=== PATIENT | female | born 1965 | race Caucasian/White ===

== ENCOUNTER → 2019-12-17 08:47 | Outpatient (POV) | payer OTHER, SELFPAY ==
[2019-12-17 09:03] VITALS: BP 154/82; PULSE 91; RESP 18; TEMP 36.3; O2SAT 100; BMI 27.4
--- NOTE | 2019-12-17 09:54 | HMH.PMCON ---
Assessment and Plan (1) Degenerative joint disease (DJD) of lumbar spine Current visit: Yes Status: Chronic Category: Medical Code(s): M47.816 - Spondylosis without myelopathy or radiculopathy, lumbar region (2) Radiculopathy Current visit: Yes Status: Chronic Qualifiers: Spinal region: lumbar Qualified Code(s): M54.16 - Radiculopathy, lumbar region Category: Medical Code(s): M54.10 - Radiculopathy, site unspecified - Assessment and plan all Dx Assessment and Plan for all problems:: We will schedule an L4-L5 lumbar epidural steroid injection for the patient. Given the symptomology I do believe it would benefit her. I will follow-up with her after this reassess her symptoms at that time she has been instructed to call the office if she has any issues prior to her next appointment. Patient is seeing cardiology on Saturday. I discussed with her that if she is put on any blood thinner she needs to contact our office. Dr. Jones has reviewed this note and agrees with this plan of care. This note was dictated using voice recognition software and may contain errors or omissions HPI - Data of Consult Consult date: 12/17/19 Requesting Physician: Nya Chan APRN Primary Care Provider: Referral Provider, MD - Consult Narrative Reason for consult: Back pain, leg pain History of present illness: Ms. Khan is a 54 year old female who presents today for consultation in regards to her low back and leg pain. She rates her pain a 5 out of 10. Patient has numbness and tingling into her hips and bilateral legs. 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 She is tried chiropractic therapy with no relief. Patient starts physical therapy tomorrow. Patient does have imaging showing degenerative disc disease lumbar spine. Patient is on anti-inflammatories and has had no relief. CC: Nya Chan APRN [facility] History I have reviewed the patient's past medical history: Yes Medical History: Reports:: Hypertension *Have you ever received a pneumonia vaccine?: No *Have you received a flu vaccine this season?: Yes Laterality Cases: Bilateral: Other Other Surgeries: Yes: Hysterectomy-Partial Amputation: No Fractures: No - *Social History Smoking Status: Current every day smoker Tobacco Type: cigarettes # Packs/Day (cigarettes): 1 Alcohol Intake: current Alcohol Intake Frequency:: holidays/special occasions only Substance Use Type: denies use *Occupational Status:: employed *Travel in the last 8 weeks: None Family Hx:: Non-contributory Review of Systems - Review of Systems Physical Exam General: Alert and oriented x3, no acute distress, pleasant and cooperative, [on room air] Lungs: Resps E/U, Symmetrical chest expansion, Eyes: PERRL Musculoskeletal: Flexion and extension of lumbar spine somewhat guarded secondary to pain, deep tendon reflexes normal, strength in upper and lower extremities [5/5], [abnormal gait noted] Neurological: speech clear, information security architect equal, no gross sensory deficits Meds Home Medications Medication Instructions Recorded Confirmed Type aspirin 81 mg tablet,delayed 81 mg PO QDAY #30 tab 05/02/17 Rx release levothyroxine 50 mcg capsule 50 mcg PO DAILY cap 06/20/17 History losartan 100 1 tab PO DAILY #30 tab 01/09/18 Rx mg-hydrochlorothiazide 25 mg tablet atorvastatin 10 mg tablet 10 mg PO DAILY 01/17/18 History bisoprolol fumarate 5 mg tablet 2.5 mg PO DAILY #30 tab 07/17/18 Rx Allergies Allergy/AdvReac Type Severity Reaction Status Date / Time cephalexin [From Keflex] Allergy Mild Hives Verified 01/17/18 11:03 clopidogrel [From Plavix] Allergy Rash Verified 01/17/18 11:03 Objective Vital signs: Temp Pulse Resp BP Pulse Ox 97.4 F L 91 H 18 154/82 H 100 12/17/19 09:03 12/17/19 09:03 12/17/19 09:03 12/17/19 09:03 12/17/19 09:03 Narrative: Physical Exam
== END ==
PROVIDERS: Visit Provider Clinical Nurse Specialist Family Health
DX: M47.896 Other spondylosis, lumbar region (principal); M54.16 Radiculopathy, lumbar region
CPT/HCPCS: 99202

== ENCOUNTER 2019-12-25 10:43 | Day surgery (SDC) | payer OTHER, SELFPAY ==
[2019-12-25 11:27] VITALS: BP 119/74; PULSE 63; RESP 18; TEMP 36.2; O2SAT 98; BMI 27.4
[2019-12-25 11:45] VITALS: BP 135/88; PULSE 79; RESP 18; O2SAT 98
[2019-12-25 11:47] VITALS: BP 132/88; PULSE 79; RESP 18; O2SAT 98
[2019-12-25 12:09] VITALS: BP 125/75; PULSE 59; RESP 20; O2SAT 98
--- NOTE | 2019-12-25 12:14 | HMH.PMPROC ---
- Procedure Date: 12/25/19 Time: 12:14 Anesthesiologist:: Ruddy Jones MD Complications:: None Pre-procedure Diagnosis:: Degenerative disc disease of lumbar spine with lumbar radiculopathy symptom Post-procedure Diagnosis:: Same Indications for Procedure:: Patient is a pleasant 54-year-old white female who we are treating for low back pain with lumbar radiculopathy symptoms. She has increasing pain in her back rating to her hips. 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 Will do lumbar epidural steroid injection today to see if this will help with her pain symptoms. Procedure Details:: Lumbar epidural steroid injection under fluoroscopy Informed consent was obtained and the risk and benefits of the procedure was explained to the patient. The patient was taken to the procedure room. The patient was placed prone on the procedure table. The patient was prepped and draped in sterile fashion. C-arm fluoroscopy was used to view the lumbar spine. Skin and subcutaneous tissues were anesthetized using lidocaine. I placed an 18-gauge epidural needle and advanced into the L4-L5 interspace using fluoroscopic guidance and [id number] to air. After confirmation of needle placement in the epidural space with dye I injected 2 mL of lidocaine 1.5% with Depo-Medrol 80 mg. Patient tolerated the procedure well with no complications. Plan and Disposition:: We will follow-up with her in 2 weeks. Will reevaluate her symptoms at that time.
== END 2019-12-25 12:10 | disposition home or self-care (01) ==
LOC: SC.PAINP 10:45
PROVIDERS: PCP Family Medicine; Visit Provider Anesthesiology
DX: M51.16 Intervertebral disc disorders with radiculopathy, lumbar region (principal); I25.10 Atherosclerotic heart disease of native coronary artery without angina pectoris; I10 Essential (primary) hypertension; E03.9 Hypothyroidism, unspecified; Z72.0 Tobacco use; F41.9 Anxiety disorder, unspecified; F32.9 Major depressive disorder, single episode, unspecified
CPT/HCPCS: 62323; J1040; Q9966

== ENCOUNTER → 2022-11-08 08:45 | Outpatient (CLI) | payer OTHER, SELFPAY ==
--- NOTE | 2022-11-08 08:48 | CA_ITS ---
FINAL REPORT TECHNIQUE: Grayscale, color Doppler and duplex Doppler ultrasound of the kidneys, aorta and renal arteries was performed. Multiple velocities were measured. CLINICAL HISTORY: HTN,HLD,EX SMOKER,HS EFE-HAS STENT NOT SURE WHICH RENAL ART COMPARISON: None FINDINGS: Aorta velocity: 92 cm/sec Right kidney: 5.8 cm. No evidence of hydronephrosis or mass. Right intrarenal RI: 0.63-0.73 Right renal artery velocity: 132 cm/sec. Right RAR (Renal artery-Aortic Ratio): 1.44 Left Kidney: 6.8 cm. No evidence of hydronephrosis or mass. Left intrarenal RI: 0.71-0.74 Left renal artery velocity: 138 cm/sec. Left RAR (Renal Artery-Aortic Ratio): 1.50 IMPRESSION: No evidence of significant renal artery stenosis. CT angiogram or postcontrast MR angiogram would be more sensitive for evaluation of possible renal artery stenosis. Reviewed, Interpreted and Dictated by Patsy Rdz MD Transcribed by Gail Madden Authenticated and [facility]
--- NOTE | 2022-11-08 08:48 | US_ITS ---
FINAL REPORT CLINICAL HISTORY: pad COMPARISON: None FINDINGS: ANKLE-BRACHIAL PRESSURE INDICES Pressure indices are as follows: RIGHT LOWER EXTREMITY: Ankle-brachial pressure index: 1.2 Comments: Normal LEFT LOWER EXTREMITY: Ankle-brachial pressure index: 1.0 Comments: Normal IMPRESSION: No evidence of significant obstructive peripheral vascular disease of the lower extremities Reviewed, Interpreted and Dictated by Patsy Rdz MD Transcribed by Gail Madden Authenticated and [facility]
== END ==
PROVIDERS: PCP General Practice; Visit Provider Nurse Practitioner
DX: I70.1 Atherosclerosis of renal artery (principal); I73.9 Peripheral vascular disease, unspecified
CPT/HCPCS: 93923; 93976

== ENCOUNTER → 2022-12-11 06:42 | Outpatient (CLI) | payer OTHER, SELFPAY ==
--- NOTE | 2022-12-11 07:11 | NM_ITS ---
APPROVED REPORT Exam: Nuclear Stress Test Indication: soa..palpitations..fatigue..high BP..high cholerterol..family hx Patient Location: Outpatient Stress Tech: Princess Gallardo [place] Tech:Lacy Singleton ARRJose RT(R)(N) Ht: 5 ft 5 in Wt: 219 lbs Bra Size: 38dd HR: 70 bpm BP: 165/82 mmHg BSA: 2.06 m2 Rhythm: NSR TID: 1.23 BMI: 36.4 History: soa..palpitations..fatigue..high BP..high cholerterol..family hx Procedure: Patient received 0.4 mg of intravenous Lexiscan, resting heart rate 70 bpm, resting blood pressure 165/82 mmHg, with Lexiscan maximum heart rate achieved was 127 bpm which is 85 % of the maximum predicted heart rate and blood pressure was 191/93 mmHg. With Lexiscan, patient denied any complaint of chest pain. Cardiac Stress and Resting SPECT Images: Cardiac Stress and Resting SPECT images were obtained using technetium 99m Myoview 31.7 mCi stress and 10.54 mCi at rest. Resting and stress imaging in both supine and prone position demonstrate a small sized, mild, reversible perfusion defect in the anterior and anteroseptal LV campbell. There is increased transient ischemic dilatation ratio (TID 1.23), suggestive of possible balanced ischemia or multivessel disease. Gated imaging demonstrates normal global and regional LV systolic function. LVEF is calculated at 63%. Conclusion: Small sized, mild, reversible perfusion defect in the distal anterior and anteroseptal LV campbell. Findings are suggestive of reversible ischemia. There is increased transient ischemic dilatation ratio (TID 1.23), suggestive of possible balanced ischemia or multivessel disease. Gated imaging demonstrates normal global and regional LV systolic function. LVEF is calculated at 63%. Electronically signed by : Jolly Bland, 12/11/2022 20:52:54
--- NOTE | 2022-12-11 07:58 | CA_ITS ---
APPROVED REPORT EXAM: Comprehensive 2D, Doppler, and color-flow Echocardiogram Sales Attendant Building Materials: Trinity Swan, KORI, RVS Ht: 5 ft 5 in Wt: 218lbs BSA: 2.05 BP: 153/89 mmHg Indications: SOA, CP, Hx-COVID-19, CADsmoker, obesity, fatigue 2D Dimensions Aortic Root 3.25 cm Left Atrium 3.02 cm LVOT 2.03 cm (M/F) 1.5-2.5 M-Mode Dimensions RVDd 1.79 cm (0.9-2.6) LA Diam 3.59 cm (1.9-4.0) LVDd 5.32 cm (3.5-5.7) Ao Diam 3.34 cm (2.0-3.7) LVDs 3.39 cm (3.5-5.7) IVSd 1.00 cm (0.6-1.1) PWd 1.11 cm (0.6-1.1) EF (Teich) 65.50% EPSs 0.54 cm FS 36.30% EDV (Teich) 136.50 mL TAPSE 1.88 (<1.7) ESV (Teich) 47.10 mL LV Diastology E Decel Time 207.00 (160-240 msec) E/A Ratio 0.89 MED E' 7.60 (< 7 cm/sec) MED A' 9.00 cm/s E'/MED E' Ratio 10.11 (>14) LAT E' 11.00 (<10 cm/sec) LAT A' 11.10 cm/s E/LAT E' Ratio 6.98 (>14) Mitral Valve MV A Velocity 86.00 (40-130 cm/s) E/A Ratio 0.89 MV Decel. Time 207.00 (160-240 ms) Pulmonary Valve PV Peak Velocity 89.00 (50-150 cm/s) NV End VMAX 149.00 cm/s Left Ventricle The left ventricle is normal size. The left ventricular systolic function is normal. The left ventricular ejection fraction is within the normal range. There is normal left ventricular wall thickness. There is normal LV segmental wall motion. The left ventricular diastolic function is normal. LVEF is 55%. Right Ventricle The right ventricle is normal size. The right ventricular systolic function is normal. Atria The left atrium size is normal. The right atrium size is normal. Aortic Valve The aortic valve is trileaflet. The aortic valve opens well. There is no aortic valvular stenosis. No aortic regurgitation is present. Mitral Valve The mitral valve is normal in structure. No evidence of mitral valve stenosis. Trace mitral regurgitation. Tricuspid Valve The tricuspid valve leaflets are thin and pliable. Trace tricuspid regurgitation. RVSP is normal. Pulmonic Valve The pulmonary valve is normal in structure. Trace pulmonic regurgitation. Great Vessels The aortic root is normal in size. The ascending aorta is normal in size. IVC is normal in size and collapses >50% with inspiration. Pericardium Trivial pericardial effusion. Other Information Study Quality: Fair Conclusion Normal biventricular systolic function. No significant valvular disease. Trivial pericardial effusion. Electronically signed by : Jolly Bland, 12/11/2022 17:30:10
--- NOTE | 2022-12-11 09:21 | CA_ITS ---
APPROVED REPORT Exam: Pharmacologic Technologist: Princess Gallardo Ht: 5 ft 5 in Wt: 218 lbs BSA: 2.05 m2 HR: 71 bpm BP: 165/82 mmHg Rhythm: NSR Indications: Chest pain Medical History Medications: Levothyroxine,,,,, Aspirin,,,,, Montelukast,,,,, BisOPROLOL,,,,, BuPROPION,,,,, Nitroglycerin,,,,, DilTiazem,,,,, Hydroxyzine,,,,, LiVALO,,,,, Ezetimibe,,,,, Trelegy,,,,, Furosemide,,,,, Stress Test Details Test: LEXISCAN HR Resting HR: 70 bpm Max Heart Rate (APMHR): 165 bpm Max HR Achieved: 127 bpm Target HR (85% APMHR): 140 bpm % of APMHR: 77 Recovery HR: 80 bpm BP Resting BP: 165.0/82.0 mmHg Max BP: 191.0/93.0 mmHg Recovery BP: 162.0/79.0 mmHg ECG Resting ECG: NSR Stress ECG: No change Arrhythmia: None Clinical Exercise duration: 04:00 min Highest Stage Achieved: Exercise capacity: 1.0 METs Stress ECG Conclusion Symptoms: Dyspnea, palpitations Arrhythmias/Ectopy: None ST-T Changes: No significant ST changes Conclusion: Unremarkable Lexiscan stress test. Myoview images are reported separately. Test Summary REST . . . . . . . Resting REST 02:34 . . 70 . 165/ 82 . . Stage 1 . . . . . . . Myoview Injected Stage 1 01:00 . . 109 . . . . Stage 2 01:00 . . 116 . 191/ 93 . . Stage 3 01:00 . . 102 . 179/ 89 . . Stage 4 01:00 . . 99 . 164/ 81 . Stop exercise at 04:00 RECOVERY 01:00 . . 93 . 169/ 81 . . RECOVERY 02:00 . . 84 . 169/ 81 . . RECOVERY 03:00 . . 80 . 162/ 79 . . RECOVERY 03:08 . . 80 . 162/ 79 . . Electronically signed by : Jolly Bland, 12/11/2022 20:49:15
== END ==
PROVIDERS: PCP General Practice; Visit Provider Nurse Practitioner Family
DX: R07.9 Chest pain, unspecified (principal)
CPT/HCPCS: 78452; 93017; 93306; A9502; J2785

== ENCOUNTER 2023-01-21 09:05 | Day surgery (SDC) | payer OTHER, SELFPAY ==
[2023-01-21] VITALS (13 sets, daily range): BP systolic 121–151; BP diastolic 61–82; PULSE 54–80; RESP 17–20; TEMP 36.3; O2SAT 95–98; BMI 34.7
--- NOTE | 2023-01-21 07:21 | IR_ITS ---
APPROVED REPORT Patient Location: Outpatient Sand System Operator: BON Davalos RT (R) PROCEDURES Left heart catheterization Left ventriculogram Selective coronary angiogram INDICATION Angina pectoris, High risk abnormal Myoview Informed consent was obtained prior to the procedure. COMPLICATIONS None Estimated Blood Loss: Less than 10 mls TECHNIQUE One percent lidocaine used to anesthetize the right anterior aspect of the wrist. The right radial artery was accessed via the Seldinger technique. A 6 Cymraes sheath was placed in the right radial artery. 2.5 mg of Verapamil, 800 mcg of nitroglycerin, 1mg Lidocaine and 5000 U Heparin were given through the arterial sheath. The papa catheter was also used to perform left heart catheterization, left ventriculogram and selective coronary angiogram. At the end of the procedure the sheath was removed good hemostasis was achieved using Traclet band, patient was transferred to the postop holding area in stable condition. ANGIOGRAPHIC RESULTS The left main artery Is an ostial 10 to 20% stenosis The left anterior descending artery Has proximal 40 to 50% stenoses followed by an additional 40% stenosis followed by an eccentric 30% stenosis immediately proximal to the takeoff of a large first diagonal artery. The LAD itself is a small caliber vessel which does give rise to multiple septal perforators however does not reach the apex. The diagonal artery is a large-caliber vessel within the LAD proper and has proximal and mid vessel 20 to 30% stenoses The circumflex artery Is a nondominant vessel which gives rise to a large ramus intermedius which has proximal tubular 40 to 50% stenosis. The circumflex artery itself has mid vessel 30% stenoses The right coronary artery Is a large dominant vessel and has proximal 30 to 40% stenosis with additional 20 to 30% stenosis. A large posterior descending artery has proximal tandem 40% stenoses while a large posterior lateral branch has proximal 30% smooth stenosis The CAHVEZ ventriculogram reveals Hyperdynamic 70% The left ventricular end-diastolic pressure Elevated at 30 mmHg IMPRESSION Small caliber LAD as described above which does not supply the apex and has diffuse proximal and mid vessel moderate plaque Moderate disease in a large ramus intermedius Mild to moderate disease in a large right coronary artery with moderate disease in the posterior descending artery Hyperdynamic ventricle Elevated LVEDP PLAN 1. Recommend medical management for coronary artery disease. 2. Patient's symptoms likely stem from a combination of tobacco usage and diastolic dysfunction. 3. Maximize antianginal medications 4. Avoidance of tobacco products 5. Recommend diuresis and weight loss 6. Recommend sleep study 7. LDL less than 55 to be achieved with high intensity statin Electronically signed by : Carlos Lopes MD 01/21/2023 12:49:16
[2023-01-21 09:33] LABS: Basophils % 0.5 % (0.1-2.0); Eosinophils # 0.3 K/mm3 (0.0-0.4); Eosinophils % 3.4 % (0.1-12.0); Hematocrit 42.1 % (37.0-47.0); Hemoglobin 12.9 g/dL (12.2-16.2); Lymphocytes # 1.8 K/mm3 (0.7-4.5); Lymphocytes % 23.6 % (10-50); Mean Corpuscular HGB Conc 30.7 g/dL (31.8-35.4); Mean Corpuscular Hemoglobin 27.4 pg (27.0-31.2); Mean Corpuscular Volume 89.1 fl (81-99); Mean Platelet Volume 7.9 fl (7.4-10.4); Monocytes # 0.3 K/mm3 (0.1-1.0); Monocytes % 4.6 % (1.7-9.3); Neutrophils # 5.1 K/mm3 (1.8-7.8); Neutrophils % 67.9 % (37.0-80.0); Platelet Count 353 K/mm3 (142-424); Red Blood Count 4.72 M/mm3 (4.20-5.40); Red Cell Distribution Width 13.8 % (11.5-17.5); White Blood Count 7.5 K/mm3 (4.8-10.8)
[2023-01-21 10:27] LABS: Chloride 105 mmol/L (98-107); Potassium 4.2 mmoL/L (3.5-5.1); Sodium 142 mmol/L (136-145)
[2023-01-21 10:29] LABS: Bilirubin,Unconjugated 0.1 mg/dL (0.0-1.1); Blood Urea Nitrogen 23 mg/dl (7-17); Creatinine Clearance Estimated 86 mL/min (50-200); Estimated Glomerular Filt Rate 52 ml/min (>60); GFR (African American) 62 ML/MIN (>60)
[2023-01-21 10:30] LABS: Alanine Aminotransferase 22 U/L (12-78); Albumin Level 4.1 g/dl (3.5-5.0); Alkaline Phosphatase 144 U/L (38-126); Anion Gap 13.2 mEq/L (5-15); Aspartate Amino Transferase 22 U/L (14-36); Bilirubin,Direct 0.2 mg/dl (0.0-0.4); Bilirubin,Indirect 0.1 mg/dL (0.0-0.9); Bilirubin,Total 0.3 mg/dl (0.2-1.3); Calcium 9.2 mg/dl (8.4-10.2); Carbon Dioxide 28 mmol/L (22.0-30.0); Chol/HDL Ratio 3.4 (1-3.5); Cholesterol 193 mg/dl (140-200); Glucose 93 mg/dl (74-100); HDL Cholesterol 56 mg/dl (40-60); Triglycerides 107 mg/dl (30-150); VLDL Cholesterol 21 mg/dL (0-40)
[2023-01-21 10:41] LABS: Direct LDL Cholesterol 94.09 mg/dL (100-129)
== END 2023-01-21 15:56 | disposition home or self-care (01) ==
PROVIDERS: Nurse Practitioner; PCP General Practice; Visit Provider Internal Medicine
DX: I25.118 Atherosclerotic heart disease of native coronary artery with other forms of angina pectoris (principal); F17.210 Nicotine dependence, cigarettes, uncomplicated; E78.5 Hyperlipidemia, unspecified; I10 Essential (primary) hypertension; R94.39 Abnormal result of other cardiovascular function study; I11.9 Hypertensive heart disease without heart failure
CPT/HCPCS: 36415; 80048; 80061; 80076; 85025; 93458; 99152; C1725; C1769; J1644; Q9967